=== PATIENT | female | born 1985 | race Caucasian/White ===

== ENCOUNTER 2016-10-12 22:47 | Emergency (ER) | payer OTHER | END 2016-10-13 01:55 | disposition home or self-care (01) | DX: O72.1 Other immediate postpartum hemorrhage (principal) ==

== ENCOUNTER 2016-10-20 08:07 | Outpatient (CLI) | payer OTHER | END 2016-10-20 08:08 | disposition home or self-care (01) | DX: O24.419 Gestational diabetes mellitus in pregnancy, unspecified control (principal) ==

== ENCOUNTER 2016-10-22 16:44 | Outpatient (CLI) | payer OTHER | END 2016-10-22 16:45 | disposition home or self-care (01) | DX: N76.0 Acute vaginitis (principal) ==